=== PATIENT | male | born 1940 | race Caucasian/White ===

== ENCOUNTER 2018-07-19 20:39 | Observation (INO) | payer MEDICARE, BC, SELFPAY ==
[2018-07-19] VITALS (9 sets, daily range): BP systolic 109–145; BP diastolic 64–93; PULSE 65–137; RESP 10–24; TEMP 36.3; O2SAT 94–97
--- NOTE | 2018-07-19 20:46 | ED.NEUROSD ---
HPI - Neuro Symptoms/Deficit General Chief Complaint: Neuro Symptoms/Deficit Stated Complaint: Dizziness Time Seen by Provider: 07/19/18 20:45 Source: patient and EMS Limitations: no limitations History of Present Illness HPI Narrative: Patient is 78-year-old male presenting with near syncopal episode. He is visiting from [place] arrived week ago typically drinks quite a bit of water but probably has not been drinking as much today he is complaining thirst now. He felt like he was going to pass out outside when EMS arrived they did postural vitals sitting he had a blood pressure of 130 when he stood up his systolic went to 70. He is not tachycardic he takes metoprolol daily for blood pressure. He also has a history of a subdural many years ago. He denies any weakness numbness tingling visual changes Related Data Home Medications Medication Instructions Recorded Confirmed metoprolol succinate 25 mg PO BID 07/20/18 07/20/18 quinapril 60 mg PO DAILY 07/20/18 07/20/18 simvastatin 20 mg PO BEDTIME 07/20/18 07/20/18 tamsulosin 0.4 mg PO DAILY 07/20/18 07/20/18 Allergies Allergy/AdvReac Type Severity Reaction Status Date / Time No Known Drug Allergies Allergy Verified 07/19/18 20:50 Review of Systems Review of Systems ROS Unobtainable: All systems reviewed & are unremarkable except as noted in HPI and below Constitutional Denies chills, Denies fever(s), Denies lethargy and Denies weakness Eyes Denies change in vision, Denies eye discharge, Denies irritation and Denies loss of vision ENT Ears, Nose, Mouth, and Throat: Denies change in voice, Denies neck pain and Denies sore throat Cardiovascular Denies chest pain, Denies irregular heart rhythm, Reports lightheadedness, Denies palpitations and Denies dyspnea on exertion Respiratory Denies dyspnea on exertion Gastrointestinal Gastrointestinal: Denies abdominal pain, Denies change in bowel habits, Denies diarrhea, Denies nausea and Denies vomiting Genitourinary Denies hematuria, Denies flank pain, Denies urinary incontinence and Denies urinary urgency Musculoskeletal Denies neck pain Integumentary/Breasts Denies pruritus, Denies erythema, Denies rash and Denies wounds Neurologic Denies loss of vision and Denies weakness Endocrine Denies palpitations PFSH Medical History Enlarged prostate (Acute) History of subdural hematoma (post traumatic) (Acute) Hyperlipidemia (Acute) Hypertension (Acute) Surgical History History of craniotomy (Acute) Family History (Updated 07/20/18 @ 02:34 by LUCILA Hudson) Father Cancer Smoker Lung disease Mother Stroke Social History household members: spouse Smoking Status: Former smoker Family History Father Cancer Smoker Lung disease Mother Stroke Social History household members: spouse Smoking Status: Former smoker Exam Initial Vital Signs Initial Vital Signs: Vital Signs Temperature 97.4 F L 07/19/18 20:46 Pulse Rate 65 07/19/18 20:46 Respiratory Rate 18 07/19/18 20:46 Blood Pressure 109/93 H 07/19/18 20:46 Pulse Oximetry 95 07/19/18 20:46 GENERAL: Well-appearing, well-nourished and in no acute distress. HEENT: Head atraumatic scarring and noted right parietal area,EOMI, pupils reactive, face symmetric,] CARDIOVASCULAR: Regular rate and rhythm without murmurs, rubs or gallops. RESPIRATORY: Breath sounds equal bilaterally, no wheezes rales or rhonchi. ABDOMEN: Soft, nontender. Normoactive bowel sounds all 4 quadrants. No guarding or rebound. : No CVA tenderness EXTREMITIES: Normal range of motion, no clubbing or edema. Neurovascularly intact NEUROLOGICAL: Alert and oriented x4.Normal gait and speech. Cranial nerves II through XII grossly intact. Good [id number], good [id number], strength equal bilaterally, no dysarthria or aphasia, sensation in tact to soft touch bilaterally, no visual changes, no facial droop SKIN: Warm, dry, no laceration, no petechiae, no rashes or lesions. Scores NIH Stroke Scale Level of Conciousness: Alert, keenly responsive Ask month/age: Answers both questions correctly. Open/close eyes, close hand: Performs both tasks correctly Best gaze horizontal: Normal Visual peraza: No visual loss Facial palsy: Normal symetrical movement Left arm drift: No drift for full 10 sec Right arm drift: No drift for full 10 sec Left leg drift: No drift for full 10 sec Right leg drift: No drift for full 10 sec Limb ataxia: Absent Sensory on face/arms/legs: Normal, no sensory loss Best language: No aphasia, normal Dysarthria: Normal Extinction or inattention: No abnormality Total NIH Stroke scale score: 0 Course Orders Ordered: ED Orders 07/19/18 20:48 CT head/brain wo con Stat XR chest 1V Stat 07/19/18 21:12 B Type Natriuretic Peptide Stat Complete Blood Count AUTO DIFF Stat Comprehensive Metabolic Panel Stat D Dimer Stat Lipase Stat Partial Thromboplastin Time Stat Prothrombin Time INR Stat Troponin & CK Cardiac Panel Stat 07/20/18 EC echo doppler complete Urgent Basic Metabolic Panel Routine Lipid Panel Routine Troponin & CK Cardiac Panel Routine 07/20/18 00:01 EKG-12 Lead Stat 07/20/18 00:28 Magnesium Routine Troponin I Stat 07/20/18 02:00 Consult to Discharge Planning Routine Acetaminophen (Tylenol) 650 mg PO Q6HR PRN PRN Reason: As Needed for Fever/Mild Pain Al Hydrox/Mg Hydrox/Simethicone (Maalox Plus) 30 ml PO Q6HR PRN PRN Reason: Dyspepsia Bisacodyl (Dulcolax) 10 mg PO DAILY PRN PRN Reason: Constipation Calcium Carbonate (Tums) 1,000 mg PO Q4HR PRN PRN Reason: Dyspepsia Docusate Sodium (Colace) 100 mg PO BID PRN PRN Reason: Constipation Enoxaparin Sodium (Lovenox) 75 mg 1 mg/kg (75 mg) SUBCUT BID [facility] Metoprolol Succinate (Toprol Xl) 25 mg PO BID [facility] Ondansetron HCl (Zofran) 4 mg IV Q8HR PRN PRN Reason: Nausea And Vomiting Quinapril HCl (Accupril) 40 mg PO DAILY [facility] Simvastatin (Zocor) 20 mg PO BEDTIME [facility] Tamsulosin HCl (Flomax) 0.4 mg PO DAILY [facility] Discontinued Medications Aspirin (Aspirin Chew) 324 mg PO NOW ONE Stop: 07/19/18 22:40 Last Admin: 07/19/18 22:44 Dose: 324 mg Diltiazem HCl (Cardizem) 10 mg IV NOW ONE Stop: 07/19/18 22:39 Last Admin: 07/19/18 22:43 Dose: 10 mg Enoxaparin Sodium (Lovenox) 75 mg 1 mg/kg (75 mg) SUBCUT NOW ONE Stop: 07/20/18 01:59 Last Admin: 07/20/18 03:08 Dose: 75 mg Enoxaparin Sodium (Lovenox) 75 mg 1 mg/kg (75 mg) SUBCUT NOW ONE Stop: 07/20/18 02:02 Last Admin: 07/20/18 03:29 Dose: Not Given Enoxaparin Sodium (Lovenox) 75 mg 1 mg/kg (75 mg) SUBCUT BID [facility] Sodium Chloride (Normal Saline 0.9%) 1,000 mls @ 1,000 mls/hr IV CONT [facility]ME Stop: 07/20/18 01:56 Last Infusion: 07/19/18 22:00 Dose: 1,000 mls/hr Admin: 07/19/18 21:00 Dose: 1,000 mls/hr Metoprolol Succinate (Toprol Xl) 50 mg PO BID [facility] Vital Signs - 8 hr 07/19/18 21:41 07/19/18 22:43 07/19/18 23:30 Temperature Pulse Rate 87 137 H 106 H Respiratory Rate 24 22 Blood Pressure 112/81 Blood Pressure [Left Arm] 145/88 H 124/64 Pulse Oximetry 96 95 07/20/18 00:11 07/20/18 00:37 07/20/18 01:00 Temperature Pulse Rate 88 97 H 93 H Respiratory Rate 10 L 15 21 Blood Pressure 115/63 Blood Pressure [Left Arm] 110/68 121/64 Pulse Oximetry 95 95 96 07/20/18 01:15 Temperature 98.1 F Pulse Rate 124 H Respiratory Rate 19 Blood Pressure 148/92 H Blood Pressure [Left Arm] Pulse Oximetry 97 MDM - Neuro Symptoms/Deficit Lab Data Attestation: I reviewed the patient's lab results. Result diagrams: 07/19/18 21:12 07/19/18 21:12 Lab Results 07/19/18 07/19/18 07/19/18 Range/Units 21:12 21:12 21:12 WBC 4.9 (4.5-11.0) X10^3/uL RBC 4.33 L (4.5-5.9) X10^6/uL Hgb 13.7 (13.5-17.5) g/dL Hct 40.7 L (41-53) % MCV 93.9 (80-100) fL MCH 31.5 (26-34) PG MCHC 33.6 (30-36) % RDW 13.6 (11.6-14.8) % Plt Count 135 L (150-400) X10^3/uL Neut % (Auto) 51.9 (50-75) % Lymph % (Auto) 32.9 (25-40) % [place] % (Auto) 12.4 (3-14) % Eos % (Auto) 1.8 L (2-4) % Baso % (Auto) 1.0 (0-2) % Neut # (Auto) 2500 (6025-0385) /uL Lymph # (Auto) 1600 (2009-5040) /uL [place] # (Auto) 600 (0-900) /uL Eos # (Auto) 100 (0-450) /uL Baso # (Auto) 0 (0-100) /uL PT 11.3 (10.1-12.7) SECONDS INR 1.0 (0.9-1.3) APTT 29 (26.4-36.2) SECONDS D-Dimer (<230) ng/mL Sodium 135 L (137-145) mmol/L Potassium 4.1 (3.4-5.1) mmol/L Chloride 103 (98-107) mmol/L Carbon Dioxide 25 (22-32) mmol/L BUN 14 (9-20) mg/dL Creatinine 0.70 (0.66-1.25) mg/dL Estimated GFR > 60.0 (>60) mL/min BUN/Creatinine Ratio 20.0 (6-22) Glucose 105 (80-110) mg/dL Calcium 8.6 (8.4-10.2) mg/dL Magnesium (1.6-2.3) mg/dL Total Bilirubin 0.7 (0.2-1.3) mg/dL AST 31 (17-59) IU/L ALT 20 L (21-72) IU/L Alkaline Phosphatase 47 (38-126) U/L Total Creatine Kinase 216 H (55-170) U/L CK-MB (CK-2) 4.29 H (<2.37) ng/mL CK-MB (CK-2) Rel Index 2.0 (1.5-5.0) % Troponin I < 0.012 (0.01-0.034) ng/mL B-Natriuretic Peptide 102 H (<100) Total Protein 6.8 (6.3-8.2) g/dL Albumin 3.8 (3.5-5.0) g/dL Globulin 3.0 (1.7-4.1) g/dL Albumin/Globulin Ratio 1.3 (1.0-2.8) Lipase 547 H (23-300) U/L 07/19/18 07/20/18 07/20/18 Range/Units 21:12 00:28 00:28 WBC (4.5-11.0) X10^3/uL RBC (4.5-5.9) X10^6/uL Hgb (13.5-17.5) g/dL Hct (41-53) % MCV (80-100) fL MCH (26-34) PG MCHC (30-36) % RDW (11.6-14.8) % Plt Count (150-400) X10^3/uL Neut % (Auto) (50-75) % Lymph % (Auto) (25-40) % [place] % (Auto) (3-14) % Eos % (Auto) (2-4) % Baso % (Auto) (0-2) % Neut # (Auto) (0875-3885) /uL Lymph # (Auto) (4514-8769) /uL [place] # (Auto) (0-900) /uL Eos # (Auto) (0-450) /uL Baso # (Auto) (0-100) /uL PT (10.1-12.7) SECONDS INR (0.9-1.3) APTT (26.4-36.2) SECONDS D-Dimer < 200 (<230) ng/mL Sodium (137-145) mmol/L Potassium (3.4-5.1) mmol/L Chloride (98-107) mmol/L Carbon Dioxide (22-32) mmol/L BUN (9-20) mg/dL Creatinine (0.66-1.25) mg/dL Estimated GFR (>60) mL/min BUN/Creatinine Ratio (6-22) Glucose (80-110) mg/dL Calcium (8.4-10.2) mg/dL Magnesium 2.0 (1.6-2.3) mg/dL Total Bilirubin (0.2-1.3) mg/dL AST (17-59) IU/L ALT (21-72) IU/L Alkaline Phosphatase (38-126) U/L Total Creatine Kinase (55-170) U/L CK-MB (CK-2) (<2.37) ng/mL CK-MB (CK-2) Rel Index (1.5-5.0) % Troponin I 0.015 (0.01-0.034) ng/mL B-Natriuretic Peptide (<100) Total Protein (6.3-8.2) g/dL Albumin (3.5-5.0) g/dL Globulin (1.7-4.1) g/dL Albumin/Globulin Ratio (1.0-2.8) Lipase (23-300) U/L Urine Dip Bedside Urine Glucose Negative Bedside Urine Bilirubin - Negative Bedside Urine Ketone - Negative Urine Specific [place] 1.015 Bedside Urine Occult Blood - Negative Bedside Urine pH 7.0 Bedside Urine Urobilinogen - Negative Bedside Urine Nitrite - Negative Bedside Urine Leukocytes - Negative Esterase Imaging Data CT scan - head: Radiologist's impression: PROCEDURE: CT HEAD/BRAIN WO CON INDICATIONS: near syncope hx of SDH TECHNIQUE: Noncontrast 4.5 mm thick angled axial sections acquired from the foramen magnum to the vertex, with coronal and sagittal reformats. For radiation dose reduction, the following was used: automated exposure control, adjustment of mA and/or kV according to patient size. COMPARISON: None. FINDINGS: Image quality: Excellent. CSF spaces: Basal cisterns are patent. No extra-axial fluid collections. The ventricles are symmetric in size and shape. Brain: No intracranial bleeds or masses. There is cerebral volume loss for age, with resultant ventricular and sulcal prominence. There are periventricular and deep white matter chronic small vessel ischemic changes. There is intracranial internal carotid artery atherosclerosis. Skull and face: There is prior right high parietal craniotomy near vertex. Calvarium and visualized facial bones appear intact, without suspicious lesions. Sinuses: Visualized sinuses and mastoids are clear. IMPRESSION: 1. No CT evidence of acute intracranial pathology. Mild diffuse atrophy. 2. Prior right high parietal craniotomy near vertex. No acute skull fracture. Dictated by: Edu Ortiz M.D. on 07/19/2018 at 21:21 Chest x-ray: Radiologist's impression: PROCEDURE: CT HEAD/BRAIN WO CON INDICATIONS: near syncope hx of SDH TECHNIQUE: Noncontrast 4.5 mm thick angled axial sections acquired from the foramen magnum to the vertex, with coronal and sagittal reformats. For radiation dose reduction, the following was used: automated exposure control, adjustment of mA and/or kV according to patient size. COMPARISON: None. FINDINGS: Image quality: Excellent. CSF spaces: Basal cisterns are patent. No extra-axial fluid collections. The ventricles are symmetric in size and shape. Brain: No intracranial bleeds or masses. There is cerebral volume loss for age, with resultant ventricular and sulcal prominence. There are periventricular and deep white matter chronic small vessel ischemic changes. There is intracranial internal carotid artery atherosclerosis. Skull and face: There is prior right high parietal craniotomy near vertex. Calvarium and visualized facial bones appear intact, without suspicious lesions. Sinuses: Visualized sinuses and mastoids are clear. IMPRESSION: 1. No CT evidence of acute intracranial pathology. Mild diffuse atrophy. 2. Prior right high parietal craniotomy near vertex. No acute skull fracture. Dictated by: Edu Ortiz M.D. on 07/19/2018 at 21:21 ECG Data Attestation: I personally reviewed and interpreted this ECG as follows: Prior ECG tracings: not available for review Interpretation: EKG 1.: Normal sinus rhythm rate 57 ID interval [address] changes no T-wave inversions no priors to compare EKG 2.: Atrial fibrillation rate 121 ST depression in precordial leads EKG 3. Rate [address] depressions no elevations MDM Narrative Medical decision making narrative: Patient initially doing well with IV fluids. However he has been on the monitor and actually went into AFib with RVR rate 130s. He is initially stated that he had some neck discomfort but was feeling very anxious. He denied any heart palpitations or flip flopping. He has never had a history of atrial fibrillation. He says he has been feeling well. His heart rate actually slowed down to the 120s and he is completely asymptomatic. We discussed cardioversion however we also discussed risk of stroke and it is difficult to pinpoint how long this has been actually going on for. He was obviously in sinus rhythm initially however it is possible he has been in and out of it for some time, at this time I do not feel comfortable cardioverting him. He is given a dose of Cardizem and does still in atrial fibrillation completely asymptomatic. He is sitting from out of town no outpatient follow-up. He has absolutely no chest pain Hospitalist Christian accepts patient for new onset atrial fibrillation He is given a dose of aspirin. At this time based on his history of subdural not sure anticoagulated have was something stronger would be appropriate as although he has many years out from that. GREGG?DS?-VASc Score for Atrial Fibrillation Stroke Risk from [employer] on 07/19/2018 All calculations should be rechecked by clinician prior to use RESULT SUMMARY: 3 points Stroke risk was 3.2% per year in >90,000 patients (the [place] Atrial Fibrillation Cohort Study) and 4.6% risk of stroke/TIA/systemic embolism. One recommendation suggests a 0 score is ?low? risk and may not require anticoagulation; a 1 score is ?low-moderate? risk and should consider antiplatelet or anticoagulation, and score 2 or greater is ?moderate-high? risk and should otherwise be an anticoagulation candidate. INPUTS: Age ?> 2 = ?74 Sex ?> 0 = Male <abbr title='Congestive heart failure'>CHF</abbr> history ?> 0 = No Hypertension history ?> 1 = Yes Stroke/TIA/thromboembolism history ?> 0 = No Vascular disease history ?> 0 = No Diabetes history ?> 0 = No Discharge Plan Departure Patient Disposition: Admitted As Inpatient Clinical Impression: Atrial fibrillation Qualifiers: Atrial fibrillation type: unspecified Qualified Code(s): I48.91 - Unspecified atrial fibrillation Discharge Date/Time: 07/20/18 01:00 Interventions: ED Discharge Assessment Last Done: 07/20/18 01:00 Admit Date/Time: 07/19/18 23:35 Admit Provider: Kevan Gonzales
--- NOTE | 2018-07-19 20:48 | DI.RAD.S_ITS ---
PROCEDURE: XR CHEST 1V INDICATIONS: near syncope TECHNIQUE: One view of the chest was acquired. COMPARISON: None. FINDINGS: Surgical changes and devices: None. Lungs and pleura: Lungs are clear. No pleural effusions or pneumothorax. Mediastinum: Mediastinal contours appear normal. Heart size is normal. Bones and chest wall: No suspicious bony lesions. Overlying soft tissues appear unremarkable. IMPRESSION: No acute cardiopulmonary pathology. Dictated by: Edu Ortiz M.D. on 07/19/2018 at 21:23 Approved by: Edu Ortiz M.D. on 07/19/2018 at 21:23
[2018-07-19] MEDS: SODIUM CHLORIDE 0.9% 1,000 ML 1000 ML IV (21:00)
--- NOTE | 2018-07-19 21:00 | PC.NURSE ---
PT had near syncopal episode about an hour prior to arrival, reports history of 2 other near syncope events in the last 20 years. States standing, felt like he was going to pass out then was helped to ground and felt better. Reports has not been drinking enough water today and is visiting from [place]. Pt reports hx of HTN and subdural hematoma in 2011, and takes metoprolol daily. He denies any weakness numbness tingling visual changes
[2018-07-19 21:19] LABS: Add Manual Diff / Slide Review NO; Basophils Absolute Auto 0 /uL (0-100); Eosinophils Absolute Auto 100 /uL (0-450); Eosinophils Percent Auto 1.8 % (2-4); Hematocrit 40.7 % (41-53); Hemoglobin 13.7 g/dL (13.5-17.5); Lymphocytes Absolute Auto 1600 /uL (1100-4500); Lymphocytes Percent Auto 32.9 % (25-40); Mean Corpuscular HGB Conc 33.6 % (30-36); Mean Corpuscular Hemoglobin 31.5 PG (26-34); Mean Corpuscular Volume 93.9 fL (80-100); Monocytes Absolute Auto 600 /uL (0-900); Monocytes Percent Auto 12.4 % (3-14); Neutrophils Absolute Auto 2500 /uL (1500-7000); Neutrophils Percent Auto 51.9 % (50-75); Platelet Count 135 X10^3/uL (150-400); Red Blood Cell Count 4.33 X10^6/uL (4.5-5.9); Red Cell Distribution Width 13.6 % (11.6-14.8); White Blood Cell Count 4.9 X10^3/uL (4.5-11.0)
[2018-07-19 21:27] LABS: Prothrombin Time 11.3 SECONDS (10.1-12.7)
[2018-07-19 21:29] LABS: PTT Partial Thromboplastin Tim 29 SECONDS (26.4-36.2)
[2018-07-19 21:32] LABS: Alanine Aminotransferase 20 IU/L (21-72); Albumin 3.8 g/dL (3.5-5.0); Albumin Globulin Ratio 1.3 (1.0-2.8); Alkaline Phosphatase 47 U/L (38-126); Aspartate Aminotransferase 31 IU/L (17-59); Bilirubin Total 0.7 mg/dL (0.2-1.3); Blood Urea Nitrogen 14 mg/dL (9-20); Calcium 8.6 mg/dL (8.4-10.2); Carbon Dioxide 25 mmol/L (22-32); Chloride 103 mmol/L (98-107); Creatine Kinase 216 U/L (55-170); Estimated Glomerular Filt Rate > 60.0 mL/min (>60); Glucose 105 mg/dL (80-110); HEMOLYSIS < 15 (0-50); Lipase 547 U/L (23-300); Potassium 4.1 mmol/L (3.4-5.1); Sodium 135 mmol/L (137-145); Total Protein 6.8 g/dL (6.3-8.2)
[2018-07-19 21:39] LABS: D Dimer < 200 ng/mL (<230)
[2018-07-19 21:43] LABS: Troponin I < 0.012 ng/mL (0.01-0.034)
[2018-07-19 21:47] LABS: Creatine Kinase MB 4.29 ng/mL (<2.37)
[2018-07-19 21:48] LABS: B Type Natriuretic Peptide 102 (<100)
[2018-07-19] MEDS: dilTIAZem 5 MG/ML SDV 10 MG IV (22:43)
[2018-07-19] MEDS: ASPIRIN 81 MG TAB 324 MG PO (22:44)
[2018-07-20] VITALS (13 sets, daily range): BP systolic 108–149; BP diastolic 63–92; PULSE 62–124; RESP 10–21; TEMP 36.7–37.2; O2SAT 93–99; BMI 22.1
--- NOTE | 2018-07-20 | DI.ECHO.S_ITS ---
[place] +---------+ [facility] +---------+ : : [address] : : : : [id number] : : : : Phone: [phone] Echocardiogram Report + + :Name: CRISTINA VERDUZCO Study Date: 07/20/2018 Height: 72 in : :[facility] Weight: 163 lb : : Gender: Male BSA: 2.0 m2 : :: 1940 Age: 78 yrs BP: 148/92 mmHg: :Reason For Study: Atrial fibrillation : : Performed By: Nila Ventura : :Referring: HIMANSHU AVALOS : + + Interpretation Summary 1) Normal left ventricular thickness, size, wall motion, and systolic function (EF 60-65%). 2) Normal right ventricular size and function. 3) The left atrium is moderately dilated. 4) No significant valvular abnormalities. 5) No prior Echo available for comparison. Procedure: A two-dimensional transthoracic echocardiogram with color flow and Doppler was performed. The study quality was technically adequate. There is no prior echocardiogram noted for this patient. The patient was in normal sinus rhythm during the exam. Left Ventricle: The left ventricle is normal in size, wall thickness, and systolic function without any focal wall motion abnormalities. The ejection fraction is estimated to be 60-65%. Diastolic parameters suggest a relaxation abnormality of the left ventricle, consistent with probable normal filling pressures. Right Ventricle: The right ventricle grossly appears normal in size with probable normal systolic function. Atria: The left atrium is moderately dilated. Right atrial size is normal. The interatrial septum is intact with no evidence for an atrial septal defect. Mitral Valve: The mitral valve is grossly normal. There is mild mitral regurgitation. Aortic Valve: The aortic valve is trileaflet. The aortic valve opens well. No aortic regurgitation is present. Tricuspid Valve: The tricuspid valve is normal in structure and function. There is trace tricuspid regurgitation. The right ventricular systolic pressure is estimated to be at least 25 mmHg based on an estimated right atrial pressure of 3 mm Hg. Pulmonic Valve: The pulmonic valve is normal in structure and function. There is trace pulmonic regurgitation. Great Vessels: The aortic root is normal size. The dimensions of the ascending aorta are normal. The aortic arch is normal in size. The IVC is of normal diameter and collapses greater than 50% with a sniff. This suggests a low right atrial pressure of 3 mm Hg. Pericardium/ Pleura There is no pericardial effusion. There is no pleural effusion. MMode/2D Measurements & Calculations LVIDd: 4.4 cm Ao root diam: 3.4 cm LVIDs: 2.4 cm Aortic Jxn: 3.0 cm FS: 46.1 % asc Aorta Diam: 3.3 cm IVSd: 1.0 cm Ao Arch Diam (Prox Trans): 2.3 cm LVPWd: 0.80 cm LV pineda. diameter/BSA (cm/m^2): 2.3 LV sys. diameter/BSA (cm/m^2): 1.2 LA dimension: 3.5 cm RA long axis: 5.2 cm LA A2 area: 22.6 cm2 RA area: 18.8 cm2 LA A4 area: 17.8 cm2 RA vol: 57.5 ml LA length (vol): 5.0 cm RA : 29.4 ml/m2 LA vol: 67.9 ml IVC diam: 1.5 cm LA vol index: 34.8 ml/m2 Doppler Measurements & Calculations Ao V2 max: 108.7 cm/sec MV E max demarco: 53.8 cm/sec Ao V2 mean: 74.0 cm/sec MV A max demarco: 48.8 cm/sec Ao max P.7 mmHg MV E/A: 1.1 Ao mean P.5 mmHg Med Peak E' Demarco: 5.1 cm/sec Ao V2 VTI: 26.7 cm E/E' med: 10.6 Lat Peak E' Demarco: 6.8 cm/sec E/E' lat: 7.9 E/e' average: 9.2 MV dec time: 0.30 sec MV P1/2t: 88.9 msec TR max demarco: 236.8 cm/sec MV P1/2t max demarco: 53.4 cm/sec TR max P.4 mmHg MVA(P1/2t): 2.5 cm2 PA V2 max: 108.8 cm/sec PA V2 mean: 66.6 cm/sec PA mean P.2 mmHg PA Accel Time: 0.13 sec Reading Physician:01:25 PM
[2018-07-20 00:58] LABS: Troponin I 0.015 ng/mL (0.01-0.034)
--- NOTE | 2018-07-20 02:12 | P.HP_ITS ---
History of Present Illness Date Patient Seen: 07/20/18 Time Patient Seen: 01:20 Chief complaint: Dizziness Narrative: Librado Hamm is 78-year-old male patient with a history of hypertension, history of subdural hematoma in 2011, hyperlipidemia and enlarged prostate who presents to the ER via EMS following a near syncopal episode. The patient states he had a sudden onset feeling dizzy stating he felt like he was going to faint. His states that he became very pale and also complained of nausea. The patient endorses a history of similar occurrences 2 other times in the past, 1 related to a flu illness and a 2nd from unknown reason. Patient is visiting from [place] having been here 2 days. He reports having a checkup with his primary care provider 1 month ago and has had previous EKGs with findings of ectopic beats but being told his heart was fine. EMS was summoned and the patient was found to be grossly orthostatic with pressures 130 relying and dropping to 70 upon standing per ER physician report. Patient describes no prodromal symptoms and has had no recent illness or cold symptoms, no fevers or chills, headaches or dizziness, nasal congestion or sore throat. He reports no complaints of chest pain and has had no palpitations. He denies shortness of breath or exertional dyspnea, cough or wheezing. He denies abdominal pain and had transient nausea which is since resolved and does endorse history of constipation. Patient has a history of subdural hematoma with no residual affects and is fully ambulatory with no weakness or alterations in gait. Upon arrival in the ER the patient was found to be afebrile with a temperature of 97.4? heart rate 65 and sinus rhythm, blood pressure 109/93, respirations of 18 and 95% on room air. The patient subsequently went into it atrial fibrillation with RVR at a rate of 137. The patient takes metoprolol routinely f or blood pressure last taken it approximately 1800 and he was treated with diltiazem 10 mg IV with decrease in rate to 106. The patient has since converted to sinus rhythm without ectopy, ST or T-wave changes. Chest x-ray finds no acute cardiopulmonary pathology and a CT of the head finds no acute intracranial pathology, findings of diffuse atrophy with notation of high right parietal craniotomy. CBC is unremarkable except for low platelet count 135, chemistries are within normal range however lipase is elevated at 547. The patient is admitted to the hospital for new onset atrial fibrillation. Patient History Medical History (Updated 07/20/18 @ 02:33 by LUCILA Hudson) Enlarged prostate (Acute) History of subdural hematoma (post traumatic) (Acute) Hyperlipidemia (Acute) Hypertension (Acute) Surgical History (Updated 07/20/18 @ 02:33 by LUCILA Hudson) History of craniotomy (Acute) Family History (Updated 07/20/18 @ 02:34 by LUCILA Hudson) Father Cancer Smoker Lung disease Mother Stroke Social History household members: spouse Smoking Status: Former smoker Family & Social History Family History (Updated 07/20/18 @ 02:34 by LUCILA Hudson) Father Cancer Smoker Lung disease Mother Stroke Social History: household members spouse Prior Living Arrangements Apartment/Condo Safety & Behavioral: Feels Safe in Current Yes Environment Been Physically Hurt or No Threatened By a Person Suicidal Ideation Description None Suicide Plan Description No Plan Tobacco & Substance use: Tobacco type cigars Smoking Status Former smoker alcohol intake frequency 0-2 drinks per day Substance Use Type does not use Comment: The patient lives with his in a [facility] in [place]. The patient's parents are both , his father from multiple medical problems including cancer and lung disease and his mother from stroke. Much of his family's health history is unknown, but his family was killed in concentration camps in World War 2. Smoking: Patient smokes 1 cigar a day for 20 years and quit at age 39. Alcohol: The patient endorses moderate drinking in the past and now only special occasions Substance use: No recreational pharmaceuticals, no cannabis products, will use herbal supplements including pumpkin seed oil 3 times daily. Advanced directives: Patient does have an advanced directive and wishes to be a FULL CODE. He designates his to be his surrogate decision maker. Meds Home Medications Medication Instructions Recorded Confirmed Type metoprolol succinate 25 mg PO BID 07/20/18 07/20/18 History quinapril 60 mg PO DAILY 07/20/18 07/20/18 History simvastatin 20 mg PO BEDTIME 07/20/18 07/20/18 History tamsulosin 0.4 mg PO DAILY 07/20/18 07/20/18 History Allergies Allergy/AdvReac Type Severity Reaction Status Date / Time No Known Drug Allergies Allergy Verified 07/19/18 20:50 Review of Systems Review of Systems All systems reviewed & are unremarkable except as noted in HPI and below Exam Vital Signs (past 8 hours): - 07/19/18 20:46 07/19/18 21:41 07/19/18 22:43 Temperature 97.4 F L Pulse Rate 65 87 137 H Respiratory Rate 18 24 Blood Pressure 109/93 H 112/81 Blood Pressure [Left Arm] 145/88 H Pulse Oximetry 95 96 07/19/18 23:30 07/20/18 00:11 07/20/18 00:37 Temperature Pulse Rate 106 H 88 97 H Respiratory Rate 22 10 L 15 Blood Pressure Blood Pressure [Left Arm] 124/64 110/68 121/64 Pulse Oximetry 95 95 95 07/20/18 01:00 Temperature Pulse Rate 93 H Respiratory Rate 21 Blood Pressure 115/63 Blood Pressure [Left Arm] Pulse Oximetry 96 Oxygen Delivery Method Room Air Narrative Exam Narrative: GENERAL APPEARANCE: well developed, well nourished, in no acute distress. HEAD: Well-healed craniotomy scar right upper parietal area EYES: pupils equal, round, reactive to light and accommodation, sclera non- icteric, extraocular movement intact without nystagmus. EARS: normal external structures, no ear pain NOSE: sinuses non tender to percussion, no rhinorrhea ORAL CAVITY: mucosa moist without lesions or exudate, palate normal, tongue in midline. THROAT: normal, no erythema, no exudate, pharynx normal, uvula midline. NECK/THYROID: neck supple, no jugular venous distention, no carotid bruit, no thyromegaly, trachea midline. LYMPH NODES: no cervical or supraclavicular lymphadenopathy. SKIN: warm and dry, no suspicious lesions, no rashes, good turgor. HEART: regular rate and rhythm, S1-S2 without murmur, no rubs or gallops, 2+ dorsalis pedis pulses bilaterally, brisk capillary refill, no edema LUNGS: clear to auscultation bilaterally, no coarseness crackles or wheezing, no cough present CHEST: Symmetrical movement, no accessory muscle use, no pain to AP and lateral compression. ABDOMEN: Soft, no distention, no epigastric or abdominal tenderness on palpation, no guarding or peritoneal signs, no organomegaly, no flank or suprapubic tenderness, active bowel tones. BACK: Normal curvature, nontender to palpation EXTREMITIES: moves all extremities, strength is 5/5 and symmetrical, well perfused. NEUROLOGIC: AAO x4, no focal neurologic deficits, cranial nerves II-XII grossly intact , motor strength normal upper and lower extremities, sensory exam intact to light touch with neuropathy bilateral feet, hearing grossly normal to speech. PSYCH: alert, articulate, cooperative, cognitive function intact, good eye contact, stable mood with congruent affect Objective Labs Result Diagrams: 07/19/18 21:12 07/19/18 21:12 Labs: Laboratory Results - last 24 hr 07/19/18 07/19/18 07/19/18 21:12 21:12 21:12 WBC 4.9 RBC 4.33 L Hgb 13.7 Hct 40.7 L MCV 93.9 MCH 31.5 MCHC 33.6 RDW 13.6 Plt Count 135 L Neut % (Auto) 51.9 Lymph % (Auto) 32.9 [place] % (Auto) 12.4 Eos % (Auto) 1.8 L Baso % (Auto) 1.0 Neut # (Auto) 2500 Lymph # (Auto) 1600 [place] # (Auto) 600 Eos # (Auto) 100 Baso # (Auto) 0 PT 11.3 INR 1.0 APTT 29 D-Dimer Sodium 135 L Potassium 4.1 Chloride 103 Carbon Dioxide 25 BUN 14 Creatinine 0.70 Estimated GFR > 60.0 BUN/Creatinine Ratio 20.0 Glucose 105 Calcium 8.6 Total Bilirubin 0.7 AST 31 ALT 20 L Alkaline Phosphatase 47 Total Creatine Kinase 216 H CK-MB (CK-2) 4.29 H CK-MB (CK-2) Rel Index 2.0 Troponin I < 0.012 B-Natriuretic Peptide 102 H Total Protein 6.8 Albumin 3.8 Globulin 3.0 Albumin/Globulin Ratio 1.3 Lipase 547 H 07/19/18 07/20/18 21:12 00:28 WBC RBC Hgb Hct MCV MCH MCHC RDW Plt Count Neut % (Auto) Lymph % (Auto) [place] % (Auto) Eos % (Auto) Baso % (Auto) Neut # (Auto) Lymph # (Auto) [place] # (Auto) Eos # (Auto) Baso # (Auto) PT INR APTT D-Dimer < 200 Sodium Potassium Chloride Carbon Dioxide BUN Creatinine Estimated GFR BUN/Creatinine Ratio Glucose Calcium Total Bilirubin AST ALT Alkaline Phosphatase Total Creatine Kinase CK-MB (CK-2) CK-MB (CK-2) Rel Index Troponin I 0.015 B-Natriuretic Peptide Total Protein Albumin Globulin Albumin/Globulin Ratio Lipase Assessment & Plan Assessment & Plan narrative: This is a 78-year-old male who is admitted with near syncopal episode and new onset atrial fibrillation. 1. Near syncopal episode -patient with a single near syncopal episode with complaints of dizziness and feeling he was going to faint and pallor. No trauma or fall associated with the event. -no prodromal symptoms and no residual confusion weakness or lethargy. -patient with history of subdural hematoma related to trauma occurred in 2011. Head CT completed with no acute findings. -will monitor neurological status 2. New onset atrial fibrillation -patient asleep presents to the ER and found to be in sinus Reginald with a ventricular rate of 58 started on IV fluid developing atrial fibrillation with ventricular rate 137 on 12 lead EKG. -no complaints of chest pain, shortness of breath, diaphoresis or nausea -rate controlled with Cardizem 10 mg. Patient is now in sinus rhythm with a ventricular rate of 83. -patient is taking metoprolol succinate 25 mg twice daily taking his evening dose at 6:00 p.m. -patient with elevated CK at 216, MB fraction is 4.29 with an index of 2.0. Troponins are negative at less than 0.012 and 0.015. -metoprolol succinate will be increased to 50 mg twice daily for rhythm management. -therapeutic Lovenox 1 milligram/kilogram, 75 mg subcu twice daily. -echocardiogram ordered. 3. Hypertension, chronic, stable -blood pressure on admission was 109 over 93, at time of exam blood pressure is 148/92. -patient received IV fluid in the emergency department to treat orthostasis. -patient is taking quinapril 60 mg daily which decreased to 40 mg daily with increase in metoprolol succinate 25 mg to 50 mg twice daily. -will monitor blood pressure 4. Hyperlipidemia, chronic, presumed stable -will continue simvastatin 20 mg nightly -lipid panel ordered 5. Enlarged prostate, chronic, stable -patient denies urinary difficulties, nocturia 1-2 times nightly -continue tamsulosin 0.4 mg daily. The patient is admitted to the hospital related to the severity of symptoms and need for ongoing monitoring and risk for complications. Patient will be admitted observation with expected length of stay less than 2 midnights. Quality VTE Deep Vein Thrombosis/Pulmonary Embolism Present on Admission: No
--- NOTE | 2018-07-20 02:49 | PC.NURSE ---
Pt arrived on unit at approx 0113, with spouse. A and O x 4. On telemetry, NSR, HR in 70's. Spouse Arianne in room and has patient's belongings including his wallet, money and electronics. Denies pain and dizziness and nausea. LS clear, LBM 07/19/18. Skin intact. SCD's in place. 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 He lives in [place].
[2018-07-20] MEDS: ENOXAPARIN 80 MG/0.8 ML SYRINGE 75 MG SUBCUT (03:08)
--- NOTE | 2018-07-20 04:02 | PC.NURSE ---
Notified ANEESH robles at 48-52 for last hour.
[2018-07-20 07:27] LABS: Creatine Kinase 161 U/L (55-170)
[2018-07-20 07:29] LABS: BUN Creatinine Ratio 14.3 (6-22); Blood Urea Nitrogen 10 mg/dL (9-20); Carbon Dioxide 25 mmol/L (22-32); Chloride 104 mmol/L (98-107); Cholesterol 121 mg/dL (140-199); Estimated Glomerular Filt Rate > 60.0 mL/min (>60); Glucose 95 mg/dL (80-110); HDL Cholesterol 45 mg/dL (40-60); HEMOLYSIS < 15 (0-50); LDL Cholesterol Calculated 61 mg/dL (<100); Potassium 4.2 mmol/L (3.4-5.1); Sodium 137 mmol/L (137-145); Triglycerides 76 mg/dL (35-150)
[2018-07-20 07:40] LABS: Troponin I 0.086 ng/mL (0.01-0.034)
[2018-07-20 08:57] LABS: Thyroid Stimulating Hormone 1.21 uIU/mL (0.47-4.68)
[2018-07-20] MEDS: METOPROLOL ER 25 MG TABLET PO (08:58)
--- NOTE | 2018-07-20 10:30 | P.PN_ITS ---
Subjective Date Patient Seen: 07/20/18 Time Patient Seen: 10:30 Exam Vital Signs (past 8 hours): - 07/20/18 06:25 07/20/18 07:30 Temperature 98.3 F 98.8 F Pulse Rate 68 62 Respiratory Rate 16 18 Blood Pressure 149/72 H 139/67 Pulse Oximetry 99 98 Oxygen Delivery Method Room Air Oxygen Flow Rate 0 Objective Labs Result Diagrams: 07/19/18 21:12 07/20/18 06:45 Labs: Laboratory Results - last 24 hr 07/19/18 07/19/18 07/19/18 21:12 21:12 21:12 WBC 4.9 RBC 4.33 L Hgb 13.7 Hct 40.7 L MCV 93.9 MCH 31.5 MCHC 33.6 RDW 13.6 Plt Count 135 L Neut % (Auto) 51.9 Lymph % (Auto) 32.9 [place] % (Auto) 12.4 Eos % (Auto) 1.8 L Baso % (Auto) 1.0 Neut # (Auto) 2500 Lymph # (Auto) 1600 [place] # (Auto) 600 Eos # (Auto) 100 Baso # (Auto) 0 PT 11.3 INR 1.0 APTT 29 D-Dimer Sodium 135 L Potassium 4.1 Chloride 103 Carbon Dioxide 25 BUN 14 Creatinine 0.70 Estimated GFR > 60.0 BUN/Creatinine Ratio 20.0 Glucose 105 Calcium 8.6 Magnesium Total Bilirubin 0.7 AST 31 ALT 20 L Alkaline Phosphatase 47 Total Creatine Kinase 216 H CK-MB (CK-2) 4.29 H CK-MB (CK-2) Rel Index 2.0 Troponin I < 0.012 B-Natriuretic Peptide 102 H Total Protein 6.8 Albumin 3.8 Globulin 3.0 Albumin/Globulin Ratio 1.3 Triglycerides Cholesterol LDL Cholesterol, Calc HDL Cholesterol Lipase 547 H TSH 07/19/18 07/20/18 07/20/18 21:12 00:28 00:28 WBC RBC Hgb Hct MCV MCH MCHC RDW Plt Count Neut % (Auto) Lymph % (Auto) [place] % (Auto) Eos % (Auto) Baso % (Auto) Neut # (Auto) Lymph # (Auto) [place] # (Auto) Eos # (Auto) Baso # (Auto) PT INR APTT D-Dimer < 200 Sodium Potassium Chloride Carbon Dioxide BUN Creatinine Estimated GFR BUN/Creatinine Ratio Glucose Calcium Magnesium 2.0 Total Bilirubin AST ALT Alkaline Phosphatase Total Creatine Kinase CK-MB (CK-2) CK-MB (CK-2) Rel Index Troponin I 0.015 B-Natriuretic Peptide Total Protein Albumin Globulin Albumin/Globulin Ratio Triglycerides Cholesterol LDL Cholesterol, Calc HDL Cholesterol Lipase TSH 07/20/18 07/20/18 07/20/18 00:28 06:45 06:45 WBC RBC Hgb Hct MCV MCH MCHC RDW Plt Count Neut % (Auto) Lymph % (Auto) [place] % (Auto) Eos % (Auto) Baso % (Auto) Neut # (Auto) Lymph # (Auto) [place] # (Auto) Eos # (Auto) Baso # (Auto) PT INR APTT D-Dimer Sodium 137 Potassium 4.2 Chloride 104 Carbon Dioxide 25 BUN 10 Creatinine 0.70 Estimated GFR > 60.0 BUN/Creatinine Ratio 14.3 Glucose 95 Calcium 9.0 Magnesium Total Bilirubin AST ALT Alkaline Phosphatase Total Creatine Kinase 161 CK-MB (CK-2) 3.30 H CK-MB (CK-2) Rel Index 2.0 Troponin I 0.086 H B-Natriuretic Peptide Total Protein Albumin Globulin Albumin/Globulin Ratio Triglycerides 76 Cholesterol 121 L LDL Cholesterol, Calc 61 HDL Cholesterol 45 Lipase TSH 1.21 Quality VTE Deep Vein Thrombosis/Pulmonary Embolism Present on Admission: No
[2018-07-20 15:56] LABS: Troponin I 0.056 ng/mL (0.01-0.034)
--- NOTE | 2018-07-20 17:00 | PM.DS.1 ---
History of Present Illness Date Patient Seen: 07/20/18 Time Patient Seen: 17:01 Chief complaint: Dizziness Narrative: Librado Hamm is 78-year-old male patient with a history of hypertension, history of subdural hematoma in 2011, hyperlipidemia and enlarged prostate who presents to the ER via EMS following a near syncopal episode. The patient states he had a sudden onset feeling dizzy stating he felt like he was going to faint. His states that he became very pale and also complained of nausea. The patient endorses a history of similar occurrences 2 other times in the past, 1 related to a flu illness and a 2nd from unknown reason. Patient is visiting from [place] having been here 2 days. He reports having a checkup with his primary care provider 1 month ago and has had previous EKGs with findings of ectopic beats but being told his heart was fine. EMS was summoned and the patient was found to be grossly orthostatic with pressures 130 relying and dropping to 70 upon standing per ER physician report. Patient describes no prodromal symptoms and has had no recent illness or cold symptoms, no fevers or chills, headaches or dizziness, nasal congestion or sore throat. He reports no complaints of chest pain and has had no palpitations. He denies shortness of breath or exertional dyspnea, cough or wheezing. He denies abdominal pain and had transient nausea which is since resolved and does endorse history of constipation. Patient has a history of subdural hematoma with no residual affects and is fully ambulatory with no weakness or alterations in gait. Upon arrival in the ER the patient was found to be afebrile with a temperature of 97.4? heart rate 65 and sinus rhythm, blood pressure 109/93, respirations of 18 and 95% on room air. The patient subsequently went into it atrial fibrillation with RVR at a rate of 137. The patient takes metoprolol routinely for blood pressure last taken it approximately 1800 and he was treated with diltiazem 10 mg IV with decrease in rate to 106. The patient has since converted to sinus rhythm without ectopy, ST or T-wave changes. Chest x-ray finds no acute cardiopulmonary pathology and a CT of the head finds no acute intracranial pathology, findings of diffuse atrophy with notation of high right parietal craniotomy. CBC is unremarkable except for low platelet count 135, chemistries are within normal range however lipase is elevated at 547. The patient is admitted to the hospital for new onset atrial fibrillation. Discharge Providers Date of admission: 07/19/18 23:35 Discharge Date: 07/20/18 Consults: 07/20/18 02:00 Consult to Discharge Planning Routine Comment: Discharge provider: Ej Morgan MD Summary Discharge Diagnosis: Paroxysmal Atrial fibrillation Type 2 CA-demand ischemia Hypertension Hyperlipidemia Presyncope Elevated Lipase Hospital Course: He has had no return of the atrial fibrillation or bradycardia. Overnight his heart rate did get into the low 50s but that is been the only bradycardia noted. His echocardiogram is normal. His electrolytes are normal. He is discussed with Dr. Fernández as his troponins started at 0.015, then lizett to 0.086, and then dropped to 0.056. The conclusion is that he experienced an episode of demand ischemia as result of the 1 hour approximate RVR from the AFib last night before he converted. The official recommendation is to proceed with cardiac stress test before travel/assumption of no significant cardiac risk. The echocardiogram is reassuring. His lack of chest pain is reassuring. His TSH is normal. 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 He is aware of the increased risk of flying at altitude with an unsure cardiac status. We discuss symptoms that would compel a return to the emergency department before his flight on Monday. He chooses to take this risk and wishes to discharge at this time. I discussed these factors with his physician in [place]. We will add aspirin to his regimen that already includes a statin and a beta-vernell. The mildly elevated lipase is not fully explainable. Status at Discharge Cognitive/behavioral status at discharge: oriented and at baseline, oriented Functional status at discharge: independent ambulation Overall status at discharge: patient is back to baseline Time Spent with Patient Greater than 30 minutes Exam Vital Signs (past 8 hours): - 07/20/18 11:55 07/20/18 15:00 07/20/18 15:17 Temperature 98.9 F 98.2 F Pulse Rate 70 64 Respiratory Rate 16 18 Blood Pressure 148/67 H 137/77 Pulse Oximetry 97 96 96 Oxygen Delivery Method Room Air Oxygen Flow Rate 0 Narrative Exam Narrative: Alert and orient x3. No apparent distress. Heart is regular rate and rhythm with occasional early beats. Lungs are clear to auscultation bilaterally. Extremities have no ankle edema. Objective Labs Result Diagrams: 07/19/18 21:12 07/20/18 06:45 Labs: Laboratory Results - last 24 hr 07/19/18 07/19/18 07/19/18 21:12 21:12 21:12 WBC 4.9 RBC 4.33 L Hgb 13.7 Hct 40.7 L MCV 93.9 MCH 31.5 MCHC 33.6 RDW 13.6 Plt Count 135 L Neut % (Auto) 51.9 Lymph % (Auto) 32.9 [place] % (Auto) 12.4 Eos % (Auto) 1.8 L Baso % (Auto) 1.0 Neut # (Auto) 2500 Lymph # (Auto) 1600 [place] # (Auto) 600 Eos # (Auto) 100 Baso # (Auto) 0 PT 11.3 INR 1.0 APTT 29 D-Dimer Sodium 135 L Potassium 4.1 Chloride 103 Carbon Dioxide 25 BUN 14 Creatinine 0.70 Estimated GFR > 60.0 BUN/Creatinine Ratio 20.0 Glucose 105 Calcium 8.6 Magnesium Total Bilirubin 0.7 AST 31 ALT 20 L Alkaline Phosphatase 47 Total Creatine Kinase 216 H CK-MB (CK-2) 4.29 H CK-MB (CK-2) Rel Index 2.0 Troponin I < 0.012 B-Natriuretic Peptide 102 H Total Protein 6.8 Albumin 3.8 Globulin 3.0 Albumin/Globulin Ratio 1.3 Triglycerides Cholesterol LDL Cholesterol, Calc HDL Cholesterol Lipase 547 H TSH 07/19/18 07/20/18 07/20/18 21:12 00:28 00:28 WBC RBC Hgb Hct MCV MCH MCHC RDW Plt Count Neut % (Auto) Lymph % (Auto) [place] % (Auto) Eos % (Auto) Baso % (Auto) Neut # (Auto) Lymph # (Auto) [place] # (Auto) Eos # (Auto) Baso # (Auto) PT INR APTT D-Dimer < 200 Sodium Potassium Chloride Carbon Dioxide BUN Creatinine Estimated GFR BUN/Creatinine Ratio Glucose Calcium Magnesium 2.0 Total Bilirubin AST ALT Alkaline Phosphatase Total Creatine Kinase CK-MB (CK-2) CK-MB (CK-2) Rel Index Troponin I 0.015 B-Natriuretic Peptide Total Protein Albumin Globulin Albumin/Globulin Ratio Triglycerides Cholesterol LDL Cholesterol, Calc HDL Cholesterol Lipase [facility] 05/10/19 05/10/19 05/10/19 00:28 06:45 06:45 WBC RBC Hgb Hct MCV MCH MCHC RDW Plt Count Neut % (Auto) Lymph % (Auto) [place] % (Auto) Eos % (Auto) Baso % (Auto) Neut # (Auto) Lymph # (Auto) [place] # (Auto) Eos # (Auto) Baso # (Auto) PT INR APTT D-Dimer Sodium 137 Potassium 4.2 Chloride 104 Carbon Dioxide 25 BUN 10 Creatinine 0.70 Estimated GFR > 60.0 BUN/Creatinine Ratio 14.3 Glucose 95 Calcium 9.0 Magnesium Total Bilirubin AST ALT Alkaline Phosphatase Total Creatine Kinase 161 CK-MB (CK-2) 3.30 H CK-MB (CK-2) Rel Index 2.0 Troponin I 0.086 H B-Natriuretic Peptide Total Protein Albumin Globulin Albumin/Globulin Ratio Triglycerides 76 Cholesterol 121 L LDL Cholesterol, Calc 61 HDL Cholesterol 45 Lipase TSH 1.21 05 12:25 WBC RBC Hgb Hct MCV MCH MCHC RDW Plt Count Neut % (Auto) Lymph % (Auto) [place] % (Auto) Eos % (Auto) Baso % (Auto) Neut # (Auto) Lymph # (Auto) [place] # (Auto) Eos # (Auto) Baso # (Auto) PT INR APTT D-Dimer Sodium Potassium Chloride Carbon Dioxide BUN Creatinine Estimated GFR BUN/Creatinine Ratio Glucose Calcium Magnesium Total Bilirubin AST ALT Alkaline Phosphatase Total Creatine Kinase CK-MB (CK-2) CK-MB (CK-2) Rel Index Troponin I 0.056 H B-Natriuretic Peptide Total Protein Albumin Globulin Albumin/Globulin Ratio Triglycerides Cholesterol LDL Cholesterol, Calc HDL Cholesterol Lipase TSH Discharge Plan Discharge Plan Patient Disposition: Home Discharge comment: Please follow up with your doctor in [place] as soon as possible Per our retirement administrator, Dr. Fernández we are recommending that you do a Treadmill stress test here before you travel. You understand the risk of delaying that test and traveling across the country before your heart has been fully evaluated. Begin taking Aspirin and continue all your other medicines. Do not do anything that could emotionally or physically stress your body and your heart any more than normal. Discharge Med Rec/Prescriptions Prescriptions: New aspirin 81 mg tablet,delayed release (DR/EC) 81 mg PO DAILY Qty: 30 RF: 0 Continued metoprolol succinate 25 mg tablet extended release 24 hr 25 mg PO BID RF: 0 simvastatin 20 mg tablet 20 mg PO BEDTIME RF: 0 tamsulosin 0.4 mg capsule 0.4 mg PO DAILY RF: 0 quinapril 40 mg tablet 60 mg PO DAILY RF: 0 Discharge Data Attending Provider: Kevan Gonzales Admit Date/Time: 07/19/18 23:35 Quality VTE Deep Vein Thrombosis/Pulmonary Embolism Present on Admission: No
--- NOTE | 2018-07-20 18:12 | PC.NURSE ---
Discharge Note Pt A&O, VSS, 96% on RA. No complaints of chest pain or SOB. Tele SB-SR 50-70's. Discharge instructions given to pt, no questions concerns per pt or . Pt belongings packed along with discharge paperwork. Pt taken down via wheelchair to personal vehicle.
--- NOTE | 2018-07-20 18:35 | CM.SWNOTE ---
DCP: Home with family PCP: Pt's home PCP is aware and coordinating with Dr. Morgan, hospitalist. Payor: [facility] Out of [facility] SCRAP HANDLER met with pt to assess for discharge needs. Pt has stabilized since admission and was anxious to be discharged. 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 He states that he is feeling great and ready for discharge, was not wanting to remain in the hospital another night. They were waiting for the results of his echocardiogram, which Dr. Morgan was going to review with a programmer analyst health it prior to giving the order for discharge. SCRAP HANDLER met with RN who was able to clarify that the test was ready for review. SCRAP HANDLER updated Dr. Morgan on pt's wishes to be discharged as soon as possible if the results were condusive to this plan. No further needs identified for discharge at this time. Discharge Planning/Care Management CM Discharge Assessment Start: 07/20/18 18:26 Freq: Status: Active Protocol: Document 07/20/18 18:26 DPL (Rec: 07/20/18 18:35 DPL [id number]) Discharge Planning Assessment Assigned Radio Talk Show Host Jayna Grossman [facility] DPOA/Assigned Designee Name Elisabeth Hamm Contact Information 's cell: Advance Directives? Yes Advance Directives on File No History Provided By Patient Family Member Has Patient been admitted in last 30 No days? 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 He is staying with friends as part of a large poetry event in our area, and passed out after having an emotional and spiritual reaction to listening to some impactful poetry. He states that he is very sensitive, and that this is the third time that this has happened over the course of several years. He has no prior history of cardiac issues or concerns, and states that he is very healthy overall. Household Members spouse Type of transporation used prior to Drives own vehicle admit Independent with ADL's Yes Is patient alert and oriented? Yes Comment Patient doesn't need assistance with any ADL's. He is independent and ready to discharge back home. Caregiver for Another No Comment N/A Comment N/A Comment No needs identified for discharge. Pt and feel that he can rest and be cared for by the many people waiting back at the friend's home where they are staying. Barriers to Discharge No Discharge Plan Home Transportation Arrangement They have their own transportation.
== END 2018-07-20 17:45 | disposition home or self-care (01) ==
LOC: ED 23:06 → AC 23:39
PROVIDERS: Family Medicine; Admitting Provider Nurse Practitioner Adult Health; Emergency Provider Emergency Medicine; Visit Provider Nurse Practitioner Adult Health
DX: R55 Syncope and collapse (principal); R29.818 Other symptoms and signs involving the nervous system; E78.5 Hyperlipidemia, unspecified; I10 Essential (primary) hypertension; I48.91 Unspecified atrial fibrillation; N40.0 Benign prostatic hyperplasia without lower urinary tract symptoms
CPT/HCPCS: 36415; 70450; 71045; 80048; 80053; 80061; 81003; 82550; 82553; 83690; 83735; 83880; 84443; 84484; 85025; 85379; 85610; 85730; 93005; 93010; 93306; 96361; 96372; 96374; 99285; 99291; G0378; J1650